=== PATIENT | male | born 1990 | race Caucasian/White ===

== ENCOUNTER 2019-08-05 10:16 | Emergency (ER) | payer MEDICAID, OTHER ==
[~2019-08-05] VITALS: Ht 190.5 cm; Wt 142.7 kg
[~2019-08-05 10:16] MED LIST: IBUP-1985 PO
[2019-08-05] MEDS ORDERED: orphenadrine citrate 60mg/2ml inj. IM ONE (11:05)
[2019-08-05] MEDS ORDERED: ketorolac tromethamine 15mg/ml inj. IM ONE (11:05)
[2019-08-05] MEDS ORDERED: METH-360 PO (11:07)
[2019-08-05] MEDS ORDERED: NAPR-56 PO (11:07)
[2019-08-05 11:55] VITALS: BP 134/86
== END 2019-08-05 11:58 | disposition home or self-care (01) ==
LOC: ER 10:16
DX: M54.41 Lumbago with sciatica, right side (principal); Z79.899 Other long term (current) drug therapy; X50.1XXA Overexertion from prolonged static or awkward postures, initial encounter; Y93.89 Activity, other specified; Y92.89 Other specified places as the place of occurrence of the external cause; Y99.8 Other external cause status
CPT/HCPCS: 96372; 99283; J1885; J2360

== ENCOUNTER 2020-07-01 15:39 | Emergency (ER) | payer MEDICAID ==
[~2020-07-01] VITALS: Ht 188 cm; Wt 141.8 kg
[~2020-07-01 15:39] MED LIST changes: +METH-360 PO
[2020-07-01 15:45] VITALS: BP 162/104
[2020-07-01] MEDS ORDERED: CEPH250T PO (16:24)
== END 2020-07-01 16:40 | disposition home or self-care (01) ==
LOC: ER 15:41
DX: T25.022A Burn of unspecified degree of left foot, initial encounter (principal); T20.07XA Burn of unspecified degree of neck, initial encounter; T23.022A Burn of unspecified degree of single left finger (nail) except thumb, initial encounter; Z79.2 Long term (current) use of antibiotics; Z79.899 Other long term (current) drug therapy; X08.8XXA Exposure to other specified smoke, fire and flames, initial encounter; Y93.89 Activity, other specified; Y92.89 Other specified places as the place of occurrence of the external cause; Y99.8 Other external cause status
CPT/HCPCS: 99283

== ENCOUNTER 2020-12-26 12:15 | Emergency (ER) | payer MEDICAID ==
[~2020-12-26] VITALS: Ht 190.5 cm; Wt 144.4 kg
[2020-12-26] MEDS ORDERED: aspirin 81mg tab.chew PO ONE (14:35)
[2020-12-26 15:25] LABS: EOSINOPHILS # (AUTO) 0.1 X10'3 (0-0.9); LYMPHOCYTES # (AUTO) 2.5 X10'3 (1.1-4.8); MEAN PLATELET VOLUME 6.8 FL (7.4-10.4); MONOCYTES # (AUTO) 0.6 X10'3 (0-0.9); NEUTROPHILS % (AUTO) 68.5 % (42-75); PLATELET COUNT 319 X10'3 (140-440)
[2020-12-26 15:26] LABS: BASOPHILS % (AUTO) 0.4 % (0-1); EOSINOPHILS % (AUTO) 1.1 % (0-6); HEMATOCRIT 43.4 % (42.0-52.0); HEMOGLOBIN 14.7 g/dl (14.0-17.9); LYMPHOCYTES % (AUTO) 24.3 % (21-51); MEAN CORPUSCULAR HEMOGLOBIN 32.9 PG (27.0-31.0); MEAN CORPUSCULAR HGB CONC 33.8 g/dL (33.0-36.5); MEAN CORPUSCULAR VOLUME 97.4 FL (78-98); MONOCYTES % (AUTO) 5.7 % (2-12); NEUTROPHILS # (AUTO) 7.1 X10'3 (1.8-7.7); RED BLOOD COUNT 4.45 X10'6 (4.70-6.10); RED CELL DISTRIBUTION WIDTH 13.6 % (11.5-14.5); WHITE BLOOD COUNT 10.4 X10'3 (4.5-11.0)
[2020-12-26 15:39] LABS: ALANINE AMINOTRANSFERASE 45 U/L (12-78); ALBUMIN 3.8 G/DL (3.4-5.0); ALKALINE PHOSPHATASE 46 IU/L (46-116); ANION GAP 13 (8-16); ASPARTATE AMINO TRANSFERASE 27 U/L (10-37); BILIRUBIN,TOTAL 0.5 MG/DL (0.1-1.0); BLOOD UREA NITROGEN 10 MG/DL (7-18); CALCIUM 9.4 MG/DL (8.5-10.1); CHLORIDE 100 MMOL/L (99-107); CREATININE 0.83 MG/DL (0.60-1.10); GLUCOSE 90 MG/DL (70-104); SODIUM 140 MMOL/L (135-145); TOTAL CARBON DIOXIDE 26.6 MMOL/L (24-32); TOTAL PROTEIN 7.6 G/DL (6.4-8.2); eGFR > 90 ML/MIN
[2020-12-26 18:36] VITALS: BP 151/98
== END 2020-12-26 18:37 | disposition home or self-care (01) ==
LOC: ER 12:15
DX: R07.89 Other chest pain (principal); R11.0 Nausea; I10 Essential (primary) hypertension; Z79.899 Other long term (current) drug therapy
CPT/HCPCS: 36415; 71045; 80053; 83880; 84484; 85025; 93005; 99285